=== PATIENT | male | born 1980 | race Caucasian/White ===

== ENCOUNTER 2019-03-01 20:38 | Inpatient (IN) | payer BC, OTHER ==
[~2019-03-01] VITALS: Ht 157.5 cm; Wt 58.0 kg
[2019-03-02] VITALS (21 sets, daily range): BP systolic 118–216; BP diastolic 62–99; PULSE 92–107; RESP 16–18
[2019-03-02] MEDS ORDERED: ONDANSETRON 4 MG INJ IV PRN (02:30)
[2019-03-02] MEDS ORDERED: ACETAMINOPHEN 325 MG TAB PO PRN (02:30)
[2019-03-02] MEDS: HYDROmorphONE 1 MG/ML SYG IV PRN ×2 (03:35→08:56)
[2019-03-02] MEDS: INSULIN ASPART [NOVOLOG] 3 ML PEN SC SCH ×3 (05:00→12:22)
[2019-03-02] MEDS ORDERED: hydrALAzine 20 MG INJ IV PRN (05:00)
[2019-03-02] MEDS ORDERED: PANTOPRAZOLE 40 MG INJ IV SCH (06:00)
[2019-03-02] MEDS ORDERED: GLUCOSE GEL 15 GRAM TUBE BUCCAL PRN (08:30)
[2019-03-02] MEDS ORDERED: GLUCOSE GEL 15 GRAM TUBE PO PRN ×2 (08:30)
[2019-03-02] MEDS ORDERED: SODIUM CHLORIDE 0.9% 1L BAG IV PRN (08:30)
[2019-03-02] MEDS ORDERED: GLUCAGON 1 MG INJ IM PRN (08:30)
[2019-03-02] MEDS ORDERED: DEXTROSE 50% 50 ML SYRINGE IV PRN ×2 (08:30)
[2019-03-02] MEDS ORDERED: AMLODIPINE 10 MG TAB PO SCH (09:00)
[2019-03-02] MEDS ORDERED: HEPARIN 1000 UNITS/ML 10 ML INJ CATHETER SCH (09:30)
--- NOTE | 2019-03-02 15:18 | QN ---
Documentation Comment PT SEEN AND EXAMINED STEVAN AGUILLON MD Mar 02, 2019 15:18
[2019-03-02] MEDS ORDERED: CEFTRIAXONE 1 GM/50 ML (PMX) 50 ML IVPB SCH (15:30)
[2019-03-02] MEDS ORDERED: VANCOMYCIN IV PER PHARMACY XX SCH (15:30)
--- NOTE | 2019-03-02 19:39 | HP ---
DATE OF ADMISSION: 03/01/2019 REASON FOR ADMISSION: The patient is transferred from outside hospital secondary to abdominal pain a nd fevers. HISTORY OF PRESENT ILLNESS: This is a 39-year-old male with a past medical history of end-stage kath l disease on hemodialysis Saturday, Saturday, Saturday, at [facility] for last 1 5 years, presented to the emergency department at [facility] secondary to severe epig astric pain, episodes of nausea and vomiting since yesterday. The patient was also apparently having fevers on arrival to the [facility]. According to the patient, he normally goes to [facility] very frequently. He has had multiple CAT scans there. There the patient had a white count of 8.2, hemoglobin 14.6, platelet count 221, fevers of 101, pulse 80, respirations 18, initial blood pressure 192/62. Labs showed a sodium of 141, potassium 5.0, BUN of 70, creatinine 11.8. The patien t had a chest x-ray that was unremarkable. The patient had a CT of the abdomen and pelvis without IV contrast that showed cardiomegaly, small pericardial effusion. Atrophy of the bilateral kidneys. E xtensive retained stool throughout the colon, no acute abnormality. There is no significant interval change from the previous study and the patient was transferred due to insurance reasons. PAST MEDICAL HISTORY: 1. End-stage renal disease on hemodialysis. 2. Hypertension. 3. Diabetes. 4. Gastritis. ALLERGIES: NONE. PAST SURGICAL HISTORY: The patient has a right Perm-A-Cath placement and also has a left AV fistula, initial one in the left upper arm was not working. The second one, according to him, they will star t using at the dialysis center. SOCIAL HISTORY: Denies any history of any alcohol, any smoking; however, smokes weed. Lives in [place]. FAMILY HISTORY: No history of kidney disease in the family. REVIEW OF SYSTEMS: The patient complained of severe epigastric pain, nausea, vomiting. Patient had fevers yesterday. Denied any chest pain, any shortness of breath, any hematemesis, any melena, any b lood per rectum. Patient does not make any urine. PHYSICAL EXAMINATION: VITAL SIGNS: Patient had a fever of 101, pulse 100, respirations 17, blood pressure 130/62. GENERAL: The patient is awake, alert, oriented, does not appear to be in any acute distress. HEENT: Pupils equal, round, reactive to light. NECK: Supple, no JVD. HEART: Regular rhythm. LUNGS: Clear to auscultation bilaterally. ABDOMEN: Some tenderness present in the epigastric region. Positive bowel sounds. No peritoneal si gns. EXTREMITIES: No clubbing, cyanosis, or edema. The patient has a right Perm-A-Cath in place. The pa tient also has a left AV fistula. DIAGNOSTIC DATA: Shows potassium of 6.4, BUN of 84, creatinine 13.37, calcium 8.1. White count is 9 .9, hemoglobin 11.2, platelet count 187. IMAGING: Patient had a CT of the abdomen and pelvis there that showed some cardiomegaly, small peric ardial effusion. Atrophy of the bilateral kidneys, extensive renal vascular calcification. No signi ficant interval change from the previous study. ASSESSMENT AND PLAN: This is a 39-year-old male who presented with: 1. Fevers with episodes of epigastric pain, nausea, vomiting, could be secondary to gastroenteritis/ colitis; however, CT of the abdomen and pelvis was negative. The patient had received Zosyn in the [facility]. 2. Abdominal pain, nausea, vomiting could be secondary to gastritis with this patient has a history of gastritis versus colitis. 3. Hyperkalemia. Patient is due for his dialysis today. 4. End-stage renal disease on hemodialysis. 5. Hypertensive urgency/emergency. 6. Diabetes. 7. History of gastritis. PLAN: At this period of time, the patient is admitted to the hospital. The patient will receive sta t hemodialysis and we will resume the patient's blood pressure medications. We will also check for L FTs, lipase. Will resume the patient's blood pressure medications of Clonidine, amlodipine, hydralaz ine. The patient is on Dilaudid for pain control. If the pain symptoms do not improve, will call [facility]. Will send for blood cultures for the fevers and will start the patient on antibiotics. Res t of the treatment will depend on the patient's hospitalization course. Dictated By: STEVAN HUANG/STEPHANIE Conf#: [id number] DID#: [id number]
--- NOTE | 2019-03-25 21:16 | DS ---
DATE OF ADMISSION: 03/01/2019 DATE OF DISCHARGE: 03/02/2019 The patient left AMA. HISTORY OF PRESENTING ILLNESS AND HOSPITAL COURSE: A 39-year-old male with a past medical history of end-stage renal disease on hemodialysis Saturday, Saturday, Saturday, at [facility] for last 15 years, presented to ED at [facility] secondary to epigastric pain an d episodes of nausea and vomiting. The patient was having fevers on arrival. The patient had multip le CAT scans there. He has white count of 8.2, hemoglobin 14.6, platelet count 221, fevers of 101. The patient was transferred and had a CT of the abdomen without IV contrast that showed cardiomegaly, small pericardial effusion, extensive stool throughout the colon, no acute abnormality. The patient was transferred here due to insurance reasons. The patient was started on IV antibiotics, kept n.p. o., IV fluids; however, the patient left AMA and said that he is feeling better without complete eli tment. Dictated By: STEVAN HUANG/STEPHANIE Conf#: [id number] DID#: [id number]
== END 2019-03-02 15:30 | disposition left against medical advice (07) | DRG 864 ==
LOC: PP2 23:57
PROVIDERS: ADMIT Internal Medicine; ATTEND Internal Medicine
DX: R50.9 Fever, unspecified (principal); N18.6 End stage renal disease; I12.0 Hypertensive chronic kidney disease with stage 5 chronic kidney disease or end stage renal disease; E87.5 Hyperkalemia; E11.9 Type 2 diabetes mellitus without complications; R11.2 Nausea with vomiting, unspecified; R10.13 Epigastric pain
CPT/HCPCS: 80048; 82962; 85025; 87340; 90935; C9113; J0360; J1170; J1644; J1815